=== PATIENT | male | born 1960 | race Caucasian/White ===

== ENCOUNTER → 2021-02-02 11:52 | Outpatient (CLI) | payer OTHER, SELFPAY ==
--- NOTE | ~2021-02-02 | CT_ITS ---
EXAMINATION: CT lung screening DATE: 02/02/2021 12:13 INDICATION: Personal history of nicotine dependence, prior smoker with 42 pack year history TECHNIQUE: Computed tomography (CT) of the chest was performed without intravenous contrast. The dose -length product (DLP) was 168.85 mGy-cm. Automated exposure control and iterative reconstruction tech [employer] were employed. COMPARISON: None FINDINGS: There is moderate emphysema. No suspicious pulmonary nodules are identified. A bullae is no kike in the left lower lobe. There is mild dependent atelectasis. No pathologically enlarged thoracic lymph nodes are identified. The heart size is normal. There is calcified coronary artery atherosclero sis There are bridging osteophytes at multiple levels in the spine, consistent with diffuse idiopathi c skeletal hyperostosis (DISH). IMPRESSION: 1. Lung-RADS category 1: Negative. Continue annual screening with noncontrast low-dose chest CT in 12 months. Reviewed, dictated and finalized at location B. IMPRESSION: 1. Lung-RADS category 1: Negative. Continue annual screening with noncontrast l ow-dose chest CT in 12 months.
== END ==
PROVIDERS: PCP Internal Medicine; Visit Provider Internal Medicine
DX: Z12.2 Encounter for screening for malignant neoplasm of respiratory organs (principal); Z87.891 Personal history of nicotine dependence
CPT/HCPCS: 71271

== ENCOUNTER → 2021-08-03 12:36 | Outpatient (CLI) | payer OTHER, SELFPAY ==
--- NOTE | ~2021-08-03 | XR_ITS ---
XR hip RT min 2V DATE: 08/03/2021 13:44 INDICATION: Acute right hip pain TECHNIQUE: AP, lateral views COMPARISON: None FINDINGS: There is severe right hip joint space narrowing and very prominent spurring of the acetabul um and femoral head consistent with severe primary right hip osteoarthritis. No fracture or dislocation is evident. The pubic symphysis and sacroiliac joints are intact. Degenerative disc disease at L4-5 and L5-S1. IMPRESSION: Severe right hip osteoarthritis Reviewed, dictated and finalized at location A.
--- NOTE | ~2021-08-03 | XR_ITS ---
EXAMINATION: XR sacroiliac joints min 3V DATE: 08/03/2021 13:44 INDICATION: Right hip pain. TECHNIQUE: 3 views of the sacroiliac joints were obtained. COMPARISON: None. FINDINGS: Bone alignment is normal. No fracture. There is severe right hip osteoarthritis and mild le ft hip osteoarthritis. There is mild osteoarthritis of the sacroiliac joints. There is moderate lumba r spondylosis. IMPRESSION: 1. Mild osteoarthritis of the sacroiliac joints. 2. Severe right hip osteoarthritis and mild left hip osteoarthritis. Reviewed, dictated and finalized at location A.
== END ==
PROVIDERS: PCP Internal Medicine; Visit Provider Internal Medicine
DX: M25.551 Pain in right hip (principal); M47.898 Other spondylosis, sacral and sacrococcygeal region; M16.0 Bilateral primary osteoarthritis of hip
CPT/HCPCS: 72202; 73502

== ENCOUNTER 2022-02-15 13:21 | Outpatient (CLI) | payer OTHER, SELFPAY ==
--- NOTE | 2022-02-15 13:41 | ECG_ITS ---
Measurements Intervals [place] Rate: 87 P: 64 W[place]: 168 QRS: 49 QRSD: 98 T: 58 QT: 370 QTc: 447 Interpretive Statements SINUS RHYTHM EARLY PRECORDIAL R/S TRANSITION BASELINE WANDER- I, II, AVR, AVL, AVF, V1 BORDERLINE ECG NO PREVIOUS ECG AVAILABLE FOR COMPARISON Electronically Signed On 02-15-2022 14:12:02 LEAD ASSISTANT MANAGER by Rajan Squires D.O.
[2022-02-15 14:05] LABS: Appearance Urine Clear (Clear); Bilirubin Urine Negative (Negative); Blood Urine 2+ (Negative); Color Urine Yellow (Yellow); Glucose Urine UA Negative (Negative); Ketones Urine Negative (Negative); Leukocyte Esterase Ur Negative LEU/UL (Negative); Nitrate Urine Negative (Negative); Protein Urine Negative (Negative); Specific Grav Ur >= 1.030 (1.001-1.035); Urobilinogen Urine 0.2 mg/dL (<2.0); pH Urine 5.5 (5.0-9.0)
[2022-02-15 14:24] LABS: Mucus Urine Rare /lpf; Squamous Epithelial Cell Urine Rare /hpf (Few); WBC Urine 0-3 /hpf
[2022-02-15 14:43] LABS: Add Urine Microscopic? YES
== END 2022-02-15 13:22 | disposition home or self-care (01) ==
LOC: ANHLAB 13:23
PROVIDERS: PCP Internal Medicine; Visit Provider Nurse Practitioner Family
DX: M16.11 Unilateral primary osteoarthritis, right hip (principal)
CPT/HCPCS: 81001; 93005

== ENCOUNTER → 2022-04-19 10:48 | Outpatient (CLI) | payer OTHER, SELFPAY ==
--- NOTE | ~2022-04-19 | XR_ITS ---
XR chest 2V DATE: 04/19/2022 11:20 INDICATION: Preprocedural examination TECHNIQUE: 2 views COMPARISON: 02/02/2021 CT lung screening FINDINGS: There is bilateral pulmonary hyperinflation. No pulmonary infiltrate or consolidation, pul monary vascular congestion ro pleural effusion or pneumothorax. There is mild aortic tortuosity. No hilar or mediastinal enlargement. No pulmonary vascular congestion ro pleural effusion or pneumotho rax. Degenerative spurring of the thoracic spine. IMPRESSION: Bilateral hyperinflation suggesting obstructive airways disease No active cardiopulmonary disease Reviewed, dictated and finalized at location B. NESS STRATEGIST
== END ==
PROVIDERS: PCP Internal Medicine
DX: Z01.818 Encounter for other preprocedural examination (principal); R91.8 Other nonspecific abnormal finding of lung field
CPT/HCPCS: 71046

== ENCOUNTER 2022-04-23 09:51 | Outpatient (CLI) | payer OTHER, SELFPAY ==
[2022-04-23 11:08] LABS: Basophils Absolute Auto 0.1 K/mm3 (0.0-0.1); Basophils Percent Auto 0.6 % (0.2-1.2); Eosinophils Absolute Auto 0.1 K/mm3 (0-0.3); Eosinophils Percent Auto 0.7 % (0-4.4); Hematocrit 48.8 % (42.0-52.0); Hemoglobin 16.5 g/dL (14.0-18.0); Immature Granulocyte Absolute 0.03 K/mm3 (0.00-0.031); Immature Granulocyte Percent A 0.4 % (0-0.5); Lymphocytes Percent Auto 21.1 % (18.3-44.2); Mean Corpuscular HGB Conc 33.8 g/dl (32-36); Mean Corpuscular Volume 94.6 fl (80-100); Mean Platelet Volume 9.8 fl (7.4-10.4); Monocytes Absolute Auto 0.7 K/mm3 (0.1-0.6); Monocytes Percent Auto 8.3 % (2.6-8.5); Neutrophils Absolute Auto 5.9 K/mm3 (1.3-6.7); Neutrophils Percent Auto 68.9 % (45.5-73.1); Platelet Count Result 260 k/mm3 (150-375); Red Blood Count 5.16 M/mm3 (4.6-6.20); Red Cell Distribution Width 12.4 % (11.5-14.5); White Blood Count 8.5 K/mm3 (4.5-10.0)
[2022-04-23 11:15] LABS: Albumin Level 4.5 g/dL (3.5-5.1); Anion Gap 6 mmol/L (8-16); Blood Urea Nitrogen 20 mg/dL (9-20); Calcium 9.6 mg/dL (8.4-10.2); Carbon Dioxide 31 mmol/L (22-30); Chloride 107 mmol/L (98-107); Estimated Glomerular Filt Rate > 60; Glucose 106 mg/dL (65-110); Potassium 4.1 mmol/L (3.4-5.0); Sodium 144 mmol/L (137-145)
[2022-04-23 11:17] LABS: Partial Thromboplastin Time 24.4 SECONDS (22.3-36.8)
[2022-04-23 11:48] LABS: Hemoglobin A1C 5.8 % (<5.7)
[2022-04-23 12:59] LABS: Appearance Urine Clear (Clear); Bilirubin Urine Negative (Negative); Blood Urine 2+ (Negative); Color Urine Yellow (Yellow); Glucose Urine UA Negative (Negative); Ketones Urine Negative (Negative); Leukocyte Esterase Ur Negative LEU/UL (Negative); Nitrate Urine Negative (Negative); Protein Urine Trace mg/dL (Negative); Specific Grav Ur >= 1.030 (1.001-1.035); Urobilinogen Urine 0.2 mg/dL (<2.0); pH Urine 5.5 (5.0-9.0)
[2022-04-23 13:01] LABS: Urine Cotinine NEGATIVE
[2022-04-23 13:09] LABS: Mucus Urine Few /lpf; RBC Urine 21-50 /hpf (0-2); Squamous Epithelial Cell Urine Rare /hpf (Few); WBC Urine 0-3 /hpf
[2022-04-23 13:14] LABS: Add Urine Microscopic? YES
== END 2022-04-23 09:52 | disposition home or self-care (01) ==
PROVIDERS: PCP Internal Medicine; Visit Provider Orthopaedic Surgery
DX: Z01.812 Encounter for preprocedural laboratory examination (principal); M16.11 Unilateral primary osteoarthritis, right hip
CPT/HCPCS: 80048; 80307; 81001; 82040; 83036; 85025; 85610; 85730; 87081

== ENCOUNTER 2022-05-07 00:48 | Day surgery (SDC) | payer OTHER, SELFPAY ==
[2022-04-23 10:08] VITALS: BP 152/115; PULSE 94; RESP 16; TEMP 36.8; O2SAT 95; BMI 29.9
--- NOTE | 2022-04-23 10:27 | PC.NURSE ---
Report to the Outpatient Waiting Room, entrance under the green pavilion located off [facility], at time __6:00AM on date __05/07/22 . Planned Procedure Time: ___7:30AM . Time changes happen often and if your time is changed the preop area will call you the afternoon before. - You and your visitor will be asked to self-screen and do not enter if you have any COVID symptoms. - Only one visitor is requested with a max of two and NO children visitors are allowed at this time. - The patient visitor may be requested to leave or wait in car when not with patient due to distancing restrictions. - A mask is optional within the hospital at this time. Patients may have clear liquids (water, carbonated beverages, clear teas, apple juice) until 3 hours prior to surgery with a maximum of 20 ounces. - No food from midnight until time of surgery Take the following medications with a SIP of water the morning of surgery: ___NONE DO NOT STOP ANY OF YOUR OTHER PRESCRIPTION MEDICATIONS PRIOR TO SURGERY ?EXCEPT THE FOLLOWING Medications to discontinue per physician ___HOLD ASPIRIN(AGGRENOX) & ADVIL 7 DAYS PRE-OP- LAST DOSE04/30/22, HOLD ALL VITAMINS/SUPPLEMENTS 3 DAYS PRE-OP- LAST DOSE 05/03/22 Please no make-up, nail nepali, hairspray, perfume, deodorant, or body powder the day of surgery. No jewelry (including any body piercings) or valuables the day of surgery, leave them at home. Please take a shower or bath the night before, or the morning of, surgery with an antibacterial soap. Wear comfortable, loose fitting clothing. Children are encouraged to wear pajamas. - Jewelry must be removed prior to entering the operating room. Rings and piercings that are not removed may be cut off. - The hospital will not accept responsibility for valuables. - Please leave all valuables, including medications, at home the day of surgery. If you are going home after surgery, a licensed package delivery driver must drive you home. - NO public transportation without another adult if you receive anesthesia. - We recommend that an adult stay with you for 24 hours following discharge. - We also recommend that you do not drive, make important decision, drink alcoholic beverages, or take any drugs that were not prescribed by your health care provider for at least 24 hours after your discharge time. Follow any additional instructions given to you from your surgeon. If you or anyone in your household have experienced Covid symptoms in the past week, please notify your surgeon or the nurse liaison at the phone number below for possible testing. Telephone instructions given to ___PATIENT and asked if any additional questions and then verbalized understanding. Patient advised to call surgeon office or pre surgery nurse liaison [phone] if any additional questions.
[2022-05-07] VITALS (16 sets, daily range): BP systolic 105–130; BP diastolic 64–96; PULSE 63–102; RESP 12–20; TEMP 36.1–37; O2SAT 94–100
--- NOTE | ~2022-05-07 | XR_ITS ---
Right Hip Technique: Portable AP AP and lateral views Clinical History: Status post hip arthroplasty Findings: Patient is status post right hip arthroplasty. Orthopedic hardware alignment appears anatom ic. No hardware complication is evident. Subcutaneous emphysema and swelling is likely postoperative in nature. No acute osseous fracture is seen. Impression: Status post total right hip arthroplasty, without evidence of hardware complication. Reviewed, dictated and finalized at location . RPRISE INFRASTRUCTURE ARCHITECT Impression: Status post total right hip arthroplasty, without evidence of hardware complica tion.
[2022-05-07] MEDS: ACETAMINOPHEN 500 MG TABLET 1000 MG PO (06:13)
[2022-05-07] MEDS: LACTATED RINGERS 1,000 ML 30 ML IV CONT ×3 (06:35→11:15)
--- NOTE | 2022-05-07 06:48 | WPDANESEPPF ---
Anes - Initial Pre Proc Eval Procedure: Operation Date: 05/07/22 07:30 Proposed Procedures p Right Total Hip Arthroplasty - Javier Rod MD Date/Time: 05/07/22 06:48 Surgeon: Javier Rod MD Pre Op Diagnosis: right hip DJD Patient Data Age: 61 Gender: M Height: 1.83 m Weight: 100.3 kg Last Vital Signs Temp 36.8 C 04/23/22 10:08 Pulse 94 04/23/22 10:08 Resp 16 04/23/22 10:08 BP 152/115 H 04/23/22 10:08 Pulse Ox 95 04/23/22 10:08 O2 Del Method Room Air 04/23/22 10:08 Allergies Allergy/AdvReac Type Severity Reaction Status Date / Time Sulfa (Sulfonamide Allergy Hives Verified 05/07/22 06:15 Antibiotics) Home Medications Medication Instructions Recorded Confirmed Type aspirin 25 mg-dipyridamole 200 mg 1 cap PO BID 10/11/21 05/07/22 History capsule,ext.release 12 hr multiphase lisinopril 5 mg tablet 30 mg PO QAM 10/11/21 05/07/22 History atorvastatin 10 mg tablet 20 mg PO DAILY 12/24/21 05/07/22 History famotidine 20 mg tablet (Pepcid) 20 mg PO DAILY PRN Indigestion 04/23/22 05/07/22 History ibuprofen 800 mg tablet 800 mg PO TID PRN Pain 04/23/22 05/07/22 History multivitamin 1 tablet PO DAILY 04/23/22 05/07/22 History chlorhexidine gluconate 4 % 1 applic topical ONCE #237 mL 04/29/22 Rx topical liquid (Hibiclens) Patient hx anesthesia problems: none Family hx anesthesia problems: none Results Review: All pre-operative results and documents have been reviewed as part of the pre-operative evaluation. [facility] Past Medical History Medical History Degenerative joint disease of knee Degenerative joint disease of right hip Left sided lacunar stroke 22 years ago affecting the Rt side. Right hip pain Weight gain Surgical History Surgical History History of hernia repair History of prostate surgery Family History Family History Unknown Diabetes mellitus Lung cancer Social History Social History Smoking packs per day: 1.5 Smoking cigarettes per day: 30.0 Years smoked: 35 Smoking pack-years: 52.50 Smoking status: Former smoker Tobacco type: cigarettes Smoking end date: 09/28/16 Alcohol intake: current Drinks per week: 2 Substance use: never Substance use type: marijuana and painkillers Other substance usage details: SMOKES MARIJUANA EVERY OTHER DAY Living arrangements: with family Additional living arrangements comments: Occupation/Education: retired Gender identity (if verbalized by the patient): Male Spiritual care concerns: No Anes - Eval Final PreProcedure Day of Procedure 05/07/22 06:48 Patient weight: obese Heart: regular rate and rhythm Lungs: clear to auscultation Airway: Mallampati scale class II Neurological: alert and oriented Last oral intake: >/= 8 hours ASA classification: III Emergent: no Anesthetic plan: proceed Anesthesia type and monitoring: general ETT and standard monitoring Results Review: All pre-operative results and documents have been reviewed as part of the pre-operative evaluation. Informed Consent: The patient's anesthetic plan and its attendant risks and benefits were discussed with the patient/family/POA. Questions were solicited and answers provided to the satisfaction of the patient/family/POA.
[2022-05-07] MEDS: TRANEXAMIC ACID 1,000MG/ISO100 1,000 MG/100 ML BAG 200 MG IVPB (07:05)
--- NOTE | 2022-05-07 07:14 | WPDHPUPDATE1 ---
History and Physical Update Update Date/Time: 05/07/22 07:14 History and Physical has been reviewed, including an updated exam of the patient. There are NO changes in the patient's condition. Risks, benefits, and alternatives have been discussed and questions answered. Patient agrees to proceed with procedure.
[2022-05-07] MEDS: ceFAZolin 2 GM/D5W 50 ML 2 GM/50 ML BAG IVPB ×3 (07:30→23:49)
[2022-05-07] MEDS: TRANEXAMIC ACID 1,000 MG/10 ML AMPUL 1000 MG IV PUSH (09:58)
[2022-05-07] MEDS: fentaNYL CITRATE INJ (*CRX) 100 MCG/2 ML VIAL 25 MCG IV PUSH ×10 (11:10→12:00)
--- NOTE | 2022-05-07 11:23 | W.PM.PROC2 ---
Procedure Note - Detailed Date of Procedure 05/07/22 Pre-op Diagnosis right hip DJD Post-op Diagnosis Same Procedure Performed R SHAYY Surgeon Javier Rod MD Anesthesia General Description of Procedure THE PATIENT WAS TAKEN TO THE OPERATING ROOM IN STABLE CONDITION AND WAS PLACED IN THE LATERAL DECUBITUS AND THE RIGHT LOWER EXTREMITY WAS PREPPED AND DRAPED IN THE STERILE FASHION. INCISION WAS MADE IN THE POSTERIOR LATERAL SIDE OF THE HIP, DOWN TO THE FASCIA LAYER. THE FASCIA WAS INCISED. THE HIP WAS EXPOSED. THE SHORT EXTERNAL ROTATORS WERE EXPOSED. THE SCIATIC NERVE WAS IDENTIFIED. INCISION WAS MADE THROUGH THE SHORT EXTERNAL ROTATORS AND THE CAPSULE OF THE HIP JOINT. THE HIP WAS DISLOCATED. AN OSTEOTOMY WAS MADE TO THE FEMORAL NECK ABOUT 1 CM PROXIMAL TO THE LESSER TROCHANTER. THE ACETABULUM WAS EXPOSED. THERE WAS SEVERE DJD SEEN. BEGINNING WITH A 50 REAMER THE ACETABULUM WAS REAMED TO 59 MM. A 59 MM TRIAL WAS PLACED IN 35 DEG OF ABDUCTION AND ANTEVERSION WAS IN ALIGNMENT WITH THE TRANS ACETABULAR LIGAMENT. THE FIT WAS EXCELLENT. THE TRIAL WAS REMOVED. A 60 MM BIOMET G7 COMPONENT WAS THEN TAPPED IN TO PLACE IN 35 DEG OF ABDUCTION AND ANTEVERSION IN ALIGNMENT WITH THE TRANSVERSE ACETABULAR LIGAMENT. THE FIT WAS EXCELLENT. THE ACETABULAR LINER WAS PLACED AND CHECKED FOR STABILITY. NEXT THE FEMUR WAS PREPARED WITH INITIAL CANAL FINDER THEN SEQUENTIAL BROACHING WITH A TAPERLOC HIP SYSTEM, UNTIL A 14 BROACH FIT WELL IN 15 OF ANTEVERSION. A +6 HIGH OFFSET NECK WITH 36 MM HEAD TRIAL WAS PLACED. THE SHUCK TEST WAS EXCELLENT AND THE STABILITY IN FLEXION AND ROTATION WAS EXCELLENT. LEG LENGTHS WERE GROSSLY EQUAL. TRIALS WERE REMOVED. A BIOMET TAPERLOC 14 STEM WAS PLACED WITH A HIGH OFFSET NECK. THE FIT WAS EXCELLENT IN 15 DEG OF ANTEVERSION. A +6 CERAMIC 36 MM FEMORAL HEAD WAS PLACED. THE HIP WAS TRIALED AND THE STABILITY WAS EXCELLENT WERE THE LEG LENGTHS AND THE SHUCK TEST. THE WOUND WAS IRRIGATED WITH STERILE BETADINE AND WATER FOR 3 MIN. THEN WASHED AGAIN. THE SCIATIC NERVE WAS IDENTIFIED AGAIN. THE CAPSULE AND THE EXTERNAL ROTATORS WERE APPROXIMATED WITH NUMBER 1 VICRYL. THE FASCIA WITH No 2 QUIL AND THE SUB CUTANEOUS LAYER WITH 2-0 ABSORBABLE SUTURE AND A RUNNING 3-0 SUBCUTICULAR STITCH FOR THE SKIN. DERMABOND WAS PLACED AND STERILE DRESSING WAS APPLIED. PATIENT WAS PLACED BACK ON TO THE SUPINE POSITION AND WAS EXTUBATED Estimated Blood Loss -700.0 Complications No immediate complications Condition Stable Disposition PACU
[2022-05-07] MEDS: HYDROmorphone HCL INJ (*CRX) 1 MG/ML SYR 0.25 MG IV PUSH ×4 (12:15→12:50)
--- NOTE | 2022-05-07 13:46 | ADMGEN ---
This patient, Caleb Mcmahon, was admitted to 2 Medical Room 240-. Patient/family oriented to hospital policies and general routines including ID bracelet, bed and alarms, visiting hours, pain management, procedures, bathroom and other care routines, personal items, smoking policy, room service/diet, and visiting hours. Information on how to activate the Rapid Response Team has been discussed. Patient/Family are encouraged to report perceived risks to care and to ask questions if they do not understand what they are told or what they should do.
[2022-05-07] MEDS: HYDROcodone/acetaminophen (*CRX) 7.5-325 MG TABLET 1 TAB PO ×2 (14:32→18:12)
[2022-05-07] MEDS: KETOROLAC 15 MG/ML VIAL (*BKC) IV PUSH ×3 (14:32→23:53)
[2022-05-07] MEDS: DEXTROSE 5%/0.45% SOD CHL 1,000 ML 80 ML IV CONT (14:35)
[2022-05-07] MEDS: SENNA/DOCUSATE SODIUM TABLET 2 TAB PO (18:06)
[2022-05-07] MEDS: FAMOTIDINE 20 MG TABLET PO (21:15)
[2022-05-07] MEDS: HYDROcodone/acetaminophen (*CRX) 7.5-325 MG TABLET 2 TAB PO (21:16)
[2022-05-08 03:09] VITALS: BP 110/56; PULSE 93; RESP 16; TEMP 37.1; O2SAT 93
[2022-05-08] MEDS: HYDROcodone/acetaminophen (*CRX) 7.5-325 MG TABLET 2 TAB PO ×3 (03:13→16:22)
[2022-05-08 05:08] LABS: Basophils Percent Auto 0.1 % (0.2-1.2); Eosinophils Percent Auto 0.1 % (0-4.4); Hematocrit 31.3 % (42.0-52.0); Hemoglobin 10.5 g/dL (14.0-18.0); Immature Granulocyte Absolute 0.05 K/mm3 (0.00-0.031); Immature Granulocyte Percent A 0.4 % (0-0.5); Lymphocytes Absolute Auto 2.24 K/mm3 (0.9-3.2); Lymphocytes Percent Auto 17.1 % (18.3-44.2); Mean Corpuscular HGB Conc 33.5 g/dl (32-36); Mean Corpuscular Hemoglobin 32.3 pg (26-34); Mean Corpuscular Volume 96.3 fl (80-100); Mean Platelet Volume 10.2 fl (7.4-10.4); Monocytes Absolute Auto 1.5 K/mm3 (0.1-0.6); Monocytes Percent Auto 11.3 % (2.6-8.5); Neutrophils Absolute Auto 9.3 K/mm3 (1.3-6.7); Platelet Count Result 200 k/mm3 (150-375); Red Blood Count 3.25 M/mm3 (4.6-6.20); Red Cell Distribution Width 12.5 % (11.5-14.5); White Blood Count 13.1 K/mm3 (4.5-10.0)
[2022-05-08 05:12] LABS: Potassium 3.7 mmol/L (3.4-5.0)
[2022-05-08 05:33] LABS: Anion Gap 3 mmol/L (8-16); Blood Urea Nitrogen 19 mg/dL (9-20); Calcium 7.7 mg/dL (8.4-10.2); Carbon Dioxide 29 mmol/L (22-30); Chloride 103 mmol/L (98-107); Estimated CRCL calculation 82 ml/min; Estimated Glomerular Filt Rate > 60; Glucose 113 mg/dL (65-110); Sodium 135 mmol/L (137-145)
[2022-05-08 06:05] VITALS: BP 118/67; PULSE 94; RESP 18; TEMP 37; O2SAT 95
[2022-05-08] MEDS: KETOROLAC 15 MG/ML VIAL (*BKC) IV PUSH ×2 (06:09→12:50)
--- NOTE | 2022-05-08 07:42 | PM.PNORT ---
Progress Note: A&P Assessment and Plan (1) Degenerative joint disease of right hip: Qualifiers: Osteoarthritis type: primary Qualified Code(s): M16.11 - Unilateral primary osteoarthritis, right hip Code(s): M16.11 - Unilateral primary osteoarthritis, right hip Status: Acute Assessment and Plan: POD 1 DOING WELL. PAIN WELL CONTROLLED. OK TO DC HOME F/U IN 3 WEEKS. Subjective Subjective Date/Time Seen: 05/08/22 07:42 POD 1 DOING WELL. NO CALF PAIN Exam Extrem: Other: VSS AFEBRILE DRESSING DRY NV INTACT NEG HOMANS SIGN CALF SOFT NON TENDER Objective Data Vital Signs Vital Signs: Vital Signs - 24 hr 05/07/22 11:00 05/07/22 11:15 05/07/22 11:30 Temperature 36.1 C L Pulse Rate 64 80 78 Respiratory Rate 16 16 14 Blood Pressure 107/73 118/75 122/82 Pulse Oximetry 100 100 100 Oxygen Delivery Simple Face Mask Simple Face Mask Simple Face Mask Oxygen Flow Rate 8 8 8 05/07/22 11:45 05/07/22 12:00 05/07/22 12:15 Temperature Pulse Rate 63 74 70 Respiratory Rate 12 14 16 Blood Pressure 105/80 112/80 105/80 Pulse Oximetry 100 96 97 Oxygen Delivery Room Air Room Air Room Air Oxygen Flow Rate 05/07/22 12:30 05/07/22 12:45 05/07/22 13:00 Temperature Pulse Rate 65 80 69 Respiratory Rate 14 12 12 Blood Pressure 114/78 106/73 108/77 Pulse Oximetry 100 100 100 Oxygen Delivery Room Air Room Air Nasal Cannula Oxygen Flow Rate 2 05/07/22 16:04 05/07/22 15:25 05/07/22 13:40 Temperature 36.6 C 36.3 C L Pulse Rate 95 76 Respiratory Rate 18 16 Blood Pressure 118/88 120/88 Pulse Oximetry 97 97 Oxygen Delivery Room Air Oxygen Flow Rate 05/07/22 13:55 05/07/22 14:25 05/07/22 18:47 Temperature 36.4 C L 36.3 C L 37.0 C Pulse Rate 85 95 97 Respiratory Rate 18 16 16 Blood Pressure 117/91 H 122/82 122/96 H Pulse Oximetry 96 96 96 Oxygen Delivery Oxygen Flow Rate 05/07/22 23:09 05/08/22 03:09 Temperature 37.0 C 37.1 C Pulse Rate 102 H 93 Respiratory Rate 16 16 Blood Pressure 113/64 110/56 L Pulse Oximetry 94 93 Oxygen Delivery Oxygen Flow Rate Intake/Output Intake/Output: Intake & Output 05/05/22 05/06/22 05/07/22 05/08/22 23:59 23:59 23:59 23:59 Intake Total 700 1250 Output Total 400 Balance 700 850 Meds/Results Medications: Active Medications Generic Name Dose Route Start Last Admin Trade Name Freq PRN Reason Stop Dose Admin Acetaminophen 650 mg 05/07/22 13:24 Acetaminophen 325 Mg Tablet PO Q6H PRN Mild Pain (1-3) or Fever Hydrocodone Bitart/Acetaminophen 1 tab 05/07/22 13:24 05/07/22 18:12 Hydrocodone/Acetaminophen (*Crx) 7.5-325 Mg Tablet PO 1 tab Q3H PRN Administration Pain Rated 4-6 Hydrocodone Bitart/Acetaminophen 2 tab 05/07/22 13:24 05/08/22 03:13 Hydrocodone/Acetaminophen (*Crx) 7.5-325 Mg Tablet PO 2 tab Q6H PRN Administration Pain Rated 7-10 Aspirin 325 mg 05/08/22 08:00 Aspirin 325 Mg Tablet PO DAILY@0800 ADARSH Atorvastatin Calcium 20 mg 05/08/22 09:00 Atorvastatin 10 Mg Tablet PO DAILY ADARSH Diazepam 5 mg 05/07/22 13:24 Diazepam (*Crx) 5 Mg Tablet PO Q6H PRN Anxiety/Muscle Spasm Dipyridamole/Aspirin 1 cap 05/07/22 17:00 05/07/22 18:07 Asa 25 Mg/Dipyridamole 200 Mg Cr Capsule PO 1 cap BID ADARSH Administration Famotidine 20 mg 05/07/22 13:24 05/07/22 21:15 Famotidine 20 Mg Tablet PO 20 mg DAILY PRN Administration Indigestion Hydroxyzine HCl 50 mg 05/07/22 13:24 Hydroxyzine Hcl 25 Mg Tablet PO Q4H PRN Itching Cefazolin Sodium 2 gm in 50 mls @ 100 mls/hr 05/07/22 15:30 05/08/22 00:20 Ancef 2 Gm/D5w 50 Ml IVPB 05/08/22 07:59 Infused Q8H [facility] Infusion Dextrose/Sodium Chloride 1,000 mls @ 80 mls/hr 05/07/22 13:24 05/08/22 03:10 Dextrose 5% Sodium Chloride 0.45% IV CONT Infused .[id number] [facility] Infusion Ketorolac Tromethamine 15 mg 05/07/22 13:24
--- NOTE | 2022-05-08 08:06 | P.PNAN_ITS ---
Anes - Prog Note Post-Op Date/Time: 05/08/22 08:06 Vital Signs: Last Vital Signs Temp 37.0 C 05/08/22 06:05 Pulse 94 05/08/22 06:05 Resp 18 05/08/22 06:05 BP 118/67 05/08/22 06:05 Pulse Ox 95 05/08/22 06:05 O2 Del Method Room Air 05/07/22 16:04 O2 Flow Rate 2 05/07/22 13:00 Pain Score (VAS): 0 I/O: Intake & Output 05/07/22 05/08/22 05/08/22 23:59 07:59 15:59 Intake Total 1750 Output Total 1000 Balance 750 Laboratory Tests 05/08/22 04:22 05/08/22 04:22 05/08/22 05/08/22 04:22 04:22 WBC 13.1 H RBC 3.25 L Hgb 10.5 L D Hct 31.3 L MCV 96.3 MCH 32.3 MCHC 33.5 RDW 12.5 Plt Count 200 MPV 10.2 Immature Gran % (Auto) 0.4 Neut % (Auto) 71.0 Lymph % (Auto) 17.1 L Christian % (Auto) 11.3 H Eos % (Auto) 0.1 Baso % (Auto) 0.1 L Lymph # (Auto) 2.24 Christian # (Auto) 1.5 H Eos # (Auto) 0.0 Baso # (Auto) 0.0 Abs Immat Gran (auto) 0.05 H Absolute Neuts (auto) 9.3 H Absolute Nucleated RBC 0.0 Nucleated RBC % 0.0 Sodium 135 L Potassium 3.7 Chloride 103 Carbon Dioxide 29 Anion Gap 3 L BUN 19 Creatinine 0.90 Estim Creat Clear Calc 82 Estimated GFR > 60 Glucose 113 H Calcium 7.7 L Patient Feedback: Patient satisfied with anesthetic care.
[2022-05-08] MEDS: ceFAZolin 2 GM/D5W 50 ML 2 GM/50 ML BAG IVPB (08:12)
[2022-05-08] MEDS: lisinopriL 10 MG TABLET 30 MG PO (08:13)
[2022-05-08] MEDS: ATORVASTATIN 10 MG TABLET 20 MG PO (08:13)
[2022-05-08] MEDS: polyethylene glycoL 3350 17 GM POWD.PACK PO (08:13)
[2022-05-08] MEDS: ASPIRIN 325 MG TABLET PO (08:13)
[2022-05-08] MEDS: SENNA/DOCUSATE SODIUM TABLET 2 TAB PO ×2 (08:14→16:24)
[2022-05-08] MEDS: FAMOTIDINE 20 MG TABLET PO (08:14)
[2022-05-08] MEDS: MULTIVITAMINS THERAPEUTIC TAB (*BKC) 1 TABLET PO (08:14)
[2022-05-08 10:00] VITALS: BP 109/68; PULSE 103; RESP 18; TEMP 36.5; O2SAT 95
[2022-05-08 15:04] VITALS: BP 98/65; PULSE 94; RESP 18; TEMP 36.8; O2SAT 98
--- NOTE | 2022-05-08 15:49 | PM.DS ---
DS: Admitting Diagnosis Discharge Date 05/08/22 Admitting Diagnosis right hip djd DS: Discharge Diagnosis Discharge Diagnosis (1) Degenerative joint disease of right hip: Qualifiers: Osteoarthritis type: primary Qualified Code(s): M16.11 - Unilateral primary osteoarthritis, right hip Code(s): M16.11 - Unilateral primary osteoarthritis, right hip Status: Acute DS: Summary Hospital Course Reason for hospitalization: RIGHT SHAYY Hospital Course: PATIENT WAS ADMITTED S/P TOTAL HIP ARTHROPLASTY FOR POSTOPERATIVE MEDICAL MANAGEMENT, PAIN CONTROL AND MOBILIZATION WITH PHYSICAL AND OCCUPATIONAL THERAPY. THE PATIENT PROGRESSED WELL WITH PT/OT. LABS AND VITALS REMAINED STABLE AND PAIN WELL CONTROLLED. THE PATIENT HAS BEEN CLEARED TO BE DISCHARGED HOME. FOLLOW UP APPOINTMENT SCHEDULED. DISCHARGE INSTRUCTIONS DISCUSSED AT LENGTH WITH THE PATIENT. MEDICATIONS REVIEWED. Status at Discharge Cognitive/behavioral status at discharge: STABLE Functional status at discharge: uses cane/walker Time Spent with Patient Time attestation: Total time spent providing and/or coordinating discharge services: DS: Data Data Completed and Pending Labs on day of discharge: Labs from last 24 hours 05/08/22 05/08/22 04:22 04:22 WBC 13.1 H RBC 3.25 L Hgb 10.5 L D Hct 31.3 L MCV 96.3 MCH 32.3 MCHC 33.5 RDW 12.5 Plt Count 200 MPV 10.2 Immature Gran % (Auto) 0.4 Neut % (Auto) 71.0 Lymph % (Auto) 17.1 L Wise % (Auto) 11.3 H Eos % (Auto) 0.1 Baso % (Auto) 0.1 L Lymph # (Auto) 2.24 Wise # (Auto) 1.5 H Eos # (Auto) 0.0 Baso # (Auto) 0.0 Abs Immat Gran (auto) 0.05 H Absolute Neuts (auto) 9.3 H Absolute Nucleated RBC 0.0 Nucleated RBC % 0.0 Sodium 135 L Potassium 3.7 Chloride 103 Carbon Dioxide 29 Anion Gap 3 L BUN 19 Creatinine 0.90 Estim Creat Clear Calc 82 Estimated GFR > 60 Glucose 113 H Calcium 7.7 L Discharge Plan Discharge Patient Disposition: Home Health Service Discharge Instructions: Post Op Total Hip Replacement Instructions Dr. Javier Rod [phone] Your dressing will be changed prior to your discharge. You will be sent home with one additional dressing to be changed on post op day 7 by the home health RN. You may remove the dressing on post op day 14. Your incision was closed with dermabond, allow the dermabond to fall off naturally once your dressing is removed. Do not pull at the dermabond or disrupt incision healing. You may shower with your dressing but do not submerge in a bath tub. Do not drive or operate machinery until you are released by Dr. Rod. Do not walk without a walker for any reason until you are released by Dr. Rod. Continue to apply ice to the hip intermittently for additional pain relief. Protect your skin with a towel or pillow case. Continue to follow strict total hip replacement precautions. Your first post op appointment was sent to you via mail preoperatively. If you have any questions or are unable to make your appointment, please contact our office for scheduling questions. Your medications have been sent to your pharmacy. You have been sent home with pain medication. We have also sent you with a stool softener as narcotics can cause constipation. Please keep this in mind during your postoperative recovery. If you are not experiencing regular bowel movements, please contact our office for further instructions. Please contact our office with any questions/concerns regarding your hip at [phone]. Per Care Coordination Patient has been arranged to have [facility] for RN, PT, OT [phone]. [facility] will call to arrange appointments. Patient Instructions: Antibiotic Form Stand Alone Forms: General Discharge Information Follow-up/Referrals: Javier Rod MD [Physician] - Keep Reg. Scheduled Appt. Discharge Medications: New aspirin 325 mg tab
== END 2022-05-08 16:38 | disposition home health service (06) ==
LOC: ANHSURGERY 06:00 → ANH2MED 13:27
PROVIDERS: PCP Internal Medicine; Visit Provider Orthopaedic Surgery
PROC: (CPT 27130; principal; 2022-05-07 07:30)
DX: M16.11 Unilateral primary osteoarthritis, right hip (principal); Z79.82 Long term (current) use of aspirin; Z86.73 Personal history of transient ischemic attack (TIA), and cerebral infarction without residual deficits; Z87.891 Personal history of nicotine dependence; F12.90 Cannabis use, unspecified, uncomplicated; E66.9 Obesity, unspecified; Z68.29 Body mass index [BMI] 29.0-29.9, adult
CPT/HCPCS: 27130; 36415; 73502; 80048; 80307; 81001; 82040; 83036; 85025; 85610; 85730; 86850; 86900; 86901; 87081; 97110; 97116; 97161; 97165; 97530; 97535; A9270; C1776; J0171; J0690; J1100; J1170; J1885; J2250; J2270; J2405; J2704; J2710; J2795; J3010; J7120

== ENCOUNTER → 2023-01-24 11:22 | Outpatient (CLI) | payer OTHER, SELFPAY ==
--- NOTE | ~2023-01-24 | CT_ITS ---
EXAMINATION:CT lung screening DATE: 01/24/2023 11:48 INDICATION: Personal history of nicotine dependence. Smoker who quit 6 years ago with 42 pack year hi story. TECHNIQUE: Computed tomography (CT) of the chest was performed without intravenous contrast. Automate d exposure control and iterative reconstruction technique were employed. The dose-length product (DLP ) was 179.20 mGy-cm. COMPARISON: Chest CT 02/02/2021 FINDINGS: There is severe emphysema. There is mild atelectasis bilaterally. No pleural effusion. The heart size is normal. There are coronary artery calcifications. No pericardial effusion. There are br idging endplate osteophytes at multiple levels in the spine, consistent with diffuse idiopathic skele althea hyperostosis (DISH). IMPRESSION: 1. Lung-RADS category 1: Negative. Continue annual screening with noncontrast low-dose chest CT in 12 months. Reviewed, dictated and finalized at location E. IMPRESSION: 1. Lung-RADS category 1: Negative. Continue annual screening with noncontrast l ow-dose chest CT in 12 months.
== END ==
PROVIDERS: PCP Internal Medicine; Visit Provider Internal Medicine
DX: Z12.2 Encounter for screening for malignant neoplasm of respiratory organs (principal); Z72.0 Tobacco use
CPT/HCPCS: 71271